=== PATIENT | female | born 1940 | race American Indian/Alaskan Native ===

== ENCOUNTER 2016-06-27 10:09 | Outpatient (CLI) | payer MEDICARE, OTHER ==
--- NOTE | 2016-06-27 14:25 | Cat Scan Report ---
CT CHEST, ABDOMEN AND PELVIS WITH CONTRAST: 06/27/16 10:09:00 CLINICAL: Restaging colon cancer. COMPARISON: 02/04/[address] TECHNIQUE: Volumetric acquisition and 1.25 millimeter scan reconstructions after the uneventful intravenous injection of 100 cc of Omnipaque 300. Consent was obtained prior to the administration of the contrast. Oral contrast was also given. FINDINGS: Chest: The lungs are clear. No pulmonary nodule or mass. Normal aorta, heart and pulmonary arteries. Normal esophagus and trachea. No mediastinal or hilar lymphadenopathy.No axillary or supraclavicular lymphadenopathy. Stable nodular enlargement of the left thyroid with a 3.9 x 3.6 x 3.3 cm partially calcified heterogeneous solid nodule. Abdomen: Normal liver, bile ducts and gallbladder. Normal stomach, duodenum, pancreas and spleen. Normal adrenal glands. The kidneys are normal except for a 1.2 cm left upper pole renal cyst. The renal collecting systems and ureters are nondilated. Normal aorta and inferior vena cava. No mass or lymphadenopathy.No ascites.Normal small bowel. Status post partial right colectomy with a normal anastomosis. Stable stranding at the anastomosis. Mild diverticulosis of the left and right colon. No diverticulitis. An appendix is not identified. 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 Pelvis: Normal urinary bladder and rectum.Absence of uterus and normal vaginal cuff. Sigmoid diverticulosis but no diverticulitis. No adnexal mass or free fluid. Bone windows demonstrate no suspicious bone lesion. IMPRESSION:1. Stable postsurgical changes status post right partial colectomy. 2. Diverticulosis but no diverticulitis. 3. Stable"natalie mesentery". 4. Status post hysterectomy. 5. Unilateral left goiter.
== END 2016-06-27 10:10 | disposition home or self-care (01) ==
LOC: SPVIMAG 10:09
PROVIDERS: ATTEND Internal Medicine Hematology
DX: C18.9 Malignant neoplasm of colon, unspecified (principal); N28.1 Cyst of kidney, acquired; K57.30 Diverticulosis of large intestine without perforation or abscess without bleeding; E04.9 Nontoxic goiter, unspecified; Z90.710 Acquired absence of both cervix and uterus; Z90.49 Acquired absence of other specified parts of digestive tract
CPT/HCPCS: 71260; 74177; Q9967